=== PATIENT | male | born 1945 | race Caucasian/White ===

== ENCOUNTER 2016-08-12 12:02 | Day surgery (SDC) | payer MEDICARE ==
[2016-08-08 09:31] VITALS: BMI 30.2
[~2016-08-12 12:02] MED LIST: HEPARIN SODIUM,PORCINE 5,000 UNIT/ML 1 ML VIAL SQ ONE; HYDROmorphone 1 MG/ML 1 ML SYRINGE IVP PRN; LACTATED RINGERS 1,000 ML IV SCH; MIDAZOLAM 2 MG/2 ML VIAL IV PRN; ONDANSETRON 4 MG/2 ML VIAL IVP ONE; ceFAZolin 2 GM in SODIUM CHLORIDE 0.9% 100 ML IVPB ONE
--- NOTE | 2016-08-12 12:36 | P.GSHP ---
History of Present Illness H&P Date: 08/12/16 Chief Complaint: Bilateral inguinal hernia Patient here today for repair of bilateral inguinal hernia. He has had complaints particularly on the right side. He feels nauseous at times when he feels that the hernia is not reduced. No change in bowel habits. No nausea or vomiting. No prior repair. He did have operative repair of a hydrocele in the past. He states this was through the scrotum. - Review of Systems Comment: The patient denies any acute changes in his vision or hearing, no dysphagia or odynophagia, no chest pain or shortness of breath, no dysuria or hematuria, no headache, no runny nose, no rectal bleeding or melena, no unexplained weight loss Past Medical History Past Medical History: Hyperlipidemia, Hypertension, Osteoarthritis (OA), Prostate Disorder History of Any Multi-Drug Resistant Organisms: None Reported Additional Past Surgical History / Comment(s): PAROTID GLAND,COLONOSCOPY, HYDROCELE,RIGHT ARM , RIGHT SHOULDER Past Anesthesia/Blood Transfusion Reactions: Motion Sickness Past Psychological History: PTSD Smoking Status: Never smoker Past Alcohol Use History: Rare Past Drug Use History: None Reported - Past Family History Mother Family Medical History: No Reported History Medications and Allergies Home Medications Medication Instructions Recorded Confirmed Type Aspirin 325 mg PO DAILY 08/08/16 08/08/16 History Potassium 99 mg PO DAILY 08/08/16 08/08/16 History Simvastatin [Zocor] 20 mg PO DAILY 08/08/16 08/08/16 History Tamsulosin HCl [Flomax] 0.4 mg PO DAILY 08/08/16 08/08/16 History Valsartan/Hydrochlorothiazide 1 tab PO DAILY 08/08/16 08/08/16 History [Diovan Hct 320-12.5 mg Tab] amLODIPine [Norvasc] 5 mg PO DAILY 08/08/16 08/08/16 History Allergies Allergy/AdvReac Type Severity Reaction Status Date / Time No Known Allergies Allergy Verified 08/12/16 12:32 Surgical - Exam Physical exam: General: Well-developed, well-nourished HEENT: Normocephalic, sclerae nonicteric Abdomen: Nontender, nondistended, bilateral inguinal hernia right greater than left Extremities: No edema Neuro: Alert and oriented Assessment and Plan (1) Bilateral inguinal hernia Narrative/Plan: Will proceed with da Jose F assisted laparoscopic repair. Potential conversion to open was discussed. Additional risks of bleeding, infection, bladder or bowel injury, chronic pain, recurrence, and anesthesia-related, locations were reviewed. He understands and wishes to proceed. Status: Acute
[2016-08-12] MEDS ORDERED: ePHEDrine 50 MG/ML 1 ML AMP ONE (13:09)
[2016-08-12] MEDS ORDERED: DEXAMETHASONE SOD PHOS (MDV) 100 MG/10 ML VIAL ONE (13:09)
[2016-08-12] MEDS ORDERED: SUCCINYLCHOLINE CHLORIDE VIAL 200 MG/10 ML VIAL IV ONE (13:09)
[2016-08-12] MEDS ORDERED: NEOSTIGMINE 1 MG/ML 10 ML VIAL ONE (13:09)
[2016-08-12] MEDS ORDERED: fentaNYL (PF) 50 MCG/ML 2 ML AMP ONE (13:09)
[2016-08-12] MEDS ORDERED: LIDOCAINE 1% INJ 10MG/ML (20 ML MDV) ONE (13:09)
[2016-08-12] MEDS ORDERED: ROCURONIUM BROMIDE 10 MG/ML 10 ML VIAL IV ONE (13:09)
[2016-08-12] MEDS ORDERED: PROPOFOL 10 MG/ML 20 ML VIAL IV ONE (13:09)
[2016-08-12] MEDS ORDERED: GLYCOPYRROLATE 0.2 MG/ML 2 ML VIAL ONE (13:09)
[2016-08-12] MEDS ORDERED: MIDAZOLAM 2 MG/2 ML VIAL ONE (13:09)
[2016-08-12] MEDS ORDERED: BUPIVACAIN-EPI 0.25%-1:200,000 30 ML VIAL SQ ONE (14:02)
[2016-08-12] MEDS ORDERED: LACTATED RINGERS 1,000 ML IV ONE ×2 (16:13)
[2016-08-12] MEDS ORDERED: ONDANSETRON 4 MG/2 ML VIAL IVP PRN (17:00)
[2016-08-12] MEDS ORDERED: HYDROmorphone 1 MG/ML 1 ML SYRINGE IVP PRN (17:00)
[2016-08-12] MEDS ORDERED: traMADol 50 MG TAB PO PRN (17:00)
[2016-08-12] MEDS ORDERED: HYDROcodone/APAP 5-325MG 1 EACH TAB PO PRN (17:00)
[2016-08-12] MEDS ORDERED: NALOXONE 0.4 MG/ML 1 ML VIAL IV PRN (17:00)
--- NOTE | 2016-08-12 17:07 | P.OP ---
Date of Procedure: 08/12/16 Procedure(s) Performed: PREOPERATIVE DIAGNOSIS: Bilateral inguinal hernia POSTOPERATIVE DIAGNOSIS: Same PROCEDURE: Laparoscopic repair bilateral inguinal hernia with the da Jose F robot assistance SURGEON: Vida EBL: Minimal ANESTHESIA: General COMPLICATIONS: None OPERATIVE PROCEDURE: Patient was placed in the operating table in the supine position. A Knight catheter was placed. He was then placed in lithotomy. The abdomen was prepped and draped in usual sterile fashion. A small curvilinear supraumbilical incision was made. The fascia was retracted anteriorly with Demetris forceps. The Veress needle was inserted. The saline drop test was normal. Insufflation took place to 15 mmHg. A 5 mm trocar was then inserted. 2 additional 8 mm trochars were placed in the right upper quadrant and left upper quadrant under visualization. The initial 5 was switched to a 12 mm trocar at that time under direct visualization. The robotic arms were then brought in and docked into place. The fenestrated bipolar was used in the left arm and the laparoscopic hiram was utilized in the right arm. A 30 12 mm scope was used in the up position. The peritoneal cavity was inspected. A sizable right inguinal hernia was seen. A subtle defect in the left inguinal region was also appreciated. A incision was then made on the right groin first cephalad to the hernia defect by several centimeters. Following that careful dissection of the preperitoneal space took place. This took place using both electrocautery and sharp dissection and primarily blunt dissection. The patient 's hernia was an indirect hernia. Hernia sac was carefully dissected away from the spermatic cord structures. This was followed along the distal aspect of the iliac vessels as well mobilizing the sac fully. There was no visible direct hernia. Medially we were dissected to the pubic symphysis. Next the dissection took place on the left side. No visible hernia was identified in the direct space. I suspected a small indirect hernia here. This was dissected in a similar fashion from the pubic symphysis to the lateral pelvis. We had adequate visualization to place our 15 x 10 mesh. This was first placed in the right groin. This was unfolded from posterior to anterior. I did trim it the lateral aspect the mesh slightly on the right side. This covered all spaces quite nicely. The mesh was then placed in the left inguinal region in a similar fashion. This dissection did not require any additional trimming of the mesh. This was unfolded nicely as well. Once the mesh was in place the peritoneal defect was then closed using a locking 2-0 Vicryl stranstrattafix suture bilaterally. The pneumoperitoneum was then evacuated. The fascia at the 12 mm site was closed using a [id number] 0 Vicryl stitch. The skin of all 3 sites was closed using a 4-0 Monocryl stitch. Steri-Strips and sterile dressings were applied. DISPOSITION: Stable to recovery room
[2016-08-12 17:09] VITALS: TEMP 97.5
[2016-08-12 17:32] VITALS: RESP 16
[2016-08-12] MEDS ORDERED: TAMSULOSIN 0.4 MG CAP.ER.24H PO STA (17:51)
[2016-08-12] MEDS ORDERED: HYDROcodone/APAP 5-325MG 1 EACH TAB PO ONE (18:47)
[2016-08-12 19:05] VITALS: BP 127/73; PULSE 80
== END 2016-08-12 19:28 | disposition home or self-care (01) ==
LOC: OR 12:02
PROVIDERS: ATTEND Surgery
DX: K40.20 Bilateral inguinal hernia, without obstruction or gangrene, not specified as recurrent (principal); I10 Essential (primary) hypertension; E78.5 Hyperlipidemia, unspecified; M19.90 Unspecified osteoarthritis, unspecified site; Z79.82 Long term (current) use of aspirin; Z79.899 Other long term (current) drug therapy
CPT/HCPCS: 49650; C1781; J2250; J0330; J1644; J2710; J0690; J2405; J2001; J3010; J1100; J2704

== ENCOUNTER → 2020-05-05 | Day surgery (SDC) | payer MEDICARE ==
[2020-05-02 16:39] VITALS: BMI 27.4
--- NOTE | 2020-05-04 16:54 | P.GSHP ---
History of Present Illness H&P Date: 05/04/20 Chief Complaint: right recurrent inguinal hernia 74-year-old male known to our service. He underwent repair bilateral inguinal hernia laparoscopically 2016. Recently has had a bulge present in the right groin. Increasing in size. Mild discomfort at times. No symptoms on the left hand side. Previous repair on the right was a large indirect hernia. Patient has difficulties with urination postoperatively. Past Medical History Past Medical History: Cancer, GERD/Reflux, Hyperlipidemia, Hypertension, Myocardial Infarction ([place]), Osteoarthritis (OA), Prostate Disorder, Thyroid Disorder Additional Past Medical History / Comment(s): thyroid cancer 2018-had surgery, BPH, back pain Last Myocardial Infarction Date:: 2016 History of Any Multi-Drug Resistant Organisms: None Reported Past Surgical History: Heart Catheterization With Stent, Hernia Repair Additional Past Surgical History / Comment(s): L PAROTID GLAND, COLONOSCOPY, R HYDROCELE, RIGHT LOWER ARM SURGERY D/T INJURY WHILE IN THE SERVICE, RIGHT SHOULDER ROTATOR CUFF REPAIR, BILATERAL INGUINAL HERNIA REPAIRS, total thyroidectomy, cataracts removed Past Anesthesia/Blood Transfusion Reactions: Previous Problems w/ Anesthesia, Motion Sickness Additional Past Anesthesia/Blood Transfusion Reaction / Comment(s): unable to urinate after surgery-has happened twice, spouse very concerned about it Date of Last Stent Placement:: 2016 Smoking Status: Never smoker - Past Family History Mother Family Medical History: Diabetes Mellitus Father Family Medical History: Myocardial Infarction ([place]) Additional Family Medical History / Comment(s): FATHER OF A [place] AT THE AGE OF 56YRS. Medications and Allergies Home Medications Medication Instructions Recorded Confirmed Type Omeprazole 20 mg PO AC-BRKFST 03/13/17 05/02/20 History Aspirin 81 mg PO DAILY chew 03/15/17 05/02/20 Rx Metoprolol Succinate (ER) [Toprol 25 mg PO DAILY tab.er.24h 03/15/17 05/02/20 Rx XL] Nitroglycerin Sl Tabs [Nitrostat] 0.4 mg SUBLINGUAL Q5M PRN #25 tab 03/15/17 05/02/20 Rx Cyanocobalamin (Vitamin B-12) 5,000 mcg PO DAILY 05/02/20 05/02/20 History [Vitamin B-12] Levothyroxine Sodium [Synthroid] 150 mcg PO DAILY 05/02/20 05/02/20 History Multivitamins, Thera [Multivitamin 1 tab PO DAILY 05/02/20 05/02/20 History (formulary)] Rosuvastatin [Crestor] 40 mg PO W/SUPPER 05/02/20 05/02/20 History Spironolactone [Aldactone] 12.5 mg PO DAILY 05/02/20 05/02/20 History Valsartan/Hydrochlorothiazide 1 tab PO DAILY 05/02/20 05/02/20 History [Diovan Hct 320-12.5 mg Tab] Allergies Allergy/AdvReac Type Severity Reaction Status Date / Time No Known Allergies Allergy Verified 05/02/20 16:32 Surgical - Exam Physical exam: General: Well-developed, well-nourished HEENT: Normocephalic, sclerae nonicteric Abdomen: Nontender, nondistended, reducible moderate-sized right inguinal hernia, no palpable hernia on the left Extremities: No edema Neuro: Alert and oriented Assessment and Plan (1) Recurrent right inguinal hernia Narrative/Plan: 74-year-old male with recurrent hernia right hand side. We'll proceed with open repair with mesh tomorrow. Risks of bleeding, infection, recurrence, bladder and bowel injury, numbness, nerve injury, urinary retention were discussed with the patient. The patient understands and wishes to proceed. We'll consider ei ther Knight catheter or observation overnight postoperatively if any difficulties voiding. Status: Acute Code(s): K40.91 - UNILATERAL INGUINAL HERNIA, W/O OBST OR GANGRENE, RECURRENT SNOMED Code(s): 573613311
[~2020-05-05] MED LIST changes: +ACETAMINOPHEN TAB 325 MG TAB PO SCH; +ACETAMINOPHEN TAB 500 MG TAB PO PRN; +BUPIVACAINE (PF) 0.25% 30 ML VIAL SQ ONE; +DEXAMETHASONE SOD PHOSPHATE 4 MG/ML 1 ML VIAL IV ONE; +GLYCOPYRROLATE 0.2 MG/ML 2 ML VIAL ONE; -HEPARIN SODIUM,PORCINE 5,000 UNIT/ML 1 ML VIAL SQ ONE; +HEPARIN SODIUM,PORCINE 5,000 UNIT/ML 1 ML VIAL SQ PRN; +HYDROmorphone 0.5 MG/0.5 ML SYRINGE IVP PRN; -HYDROmorphone 1 MG/ML 1 ML SYRINGE IVP PRN; +IBUPROFEN 600 MG TAB PO SCH; +LACTATED RINGERS 1,000 ML IV ONE; +LIDOCAINE 1% INJ 10MG/ML (20 ML MDV) ONE; +MIDAZOLAM 2 MG/2 ML VIAL ONE; +NEOSTIGMINE 1 MG/ML 10 ML VIAL ONE; +PROPOFOL 10 MG/ML 20 ML VIAL IV ONE; +ROCURONIUM 10 MG/ML (10 ML VIAL) IV ONE; +SUCCINYLCHOLINE CHLORIDE 100 MG/5 ML SYR IV ONE; +TAMSULOSIN 0.4 MG CAP.ER.24H PO ONE; -ceFAZolin 2 GM in SODIUM CHLORIDE 0.9% 100 ML IVPB ONE; +fentaNYL (PF) 50 MCG/ML 2 ML AMP ONE; +traMADol 50 MG TAB ONE; +traMADol 50 MG TAB PO ONE
[2020-05-05 11:45] VITALS: TEMP 98.3
--- NOTE | 2020-05-05 11:51 | P.OP ---
Date of Procedure: 05/05/20 Procedure(s) Performed: PREOPERATIVE DIAGNOSIS: Recurrent right inguinal hernia POSTOPERATIVE DIAGNOSIS: Same PROCEDURE: Current right inguinal hernia repair with mesh SURGEON: Vida EBL: Minimal ANESTHESIA: General COMPLICATIONS: None OPERATIVE PROCEDURE: Patient was placed in the operating table in the supine position and placed under general anesthesia. An oblique incision was made in the [] groin. Dissection down through the subcutaneous tissues took place using electrocautery. The external oblique fascia was incised using a scalpel. This opening was lengthened using the Metzenbaum scissors. The spermatic cord was encircled with a [place] drain. The structures were identified and preserved. Careful dissection revealed no evidence of a hernia sac per se. A large lipoma cord was encountered and ligated at the internal inguinal ring using an 0 silk stick tie suture. The patient had a very wide internal inguinal ring. The hernia was acting like a direct hernia through the internal inguinal ring. I could not feel the mesh that was previously placed laparoscopically. The contents were reduced. A large Prolene hernia system was utilized with the circular portion placed in the preperitoneal space through the large internal inguinal ring. After this was flattened out appropriately the internal inguinal ring itself was tightened using a short running 0 silk suture. The outer oval piece of mesh was then slit and wrapped around the spermatic cord and sutured back to itself. The mesh was sewn to the folding edge of the inguinal ligament, the pubic tubercle, the conjoined tendon using interrupted 2-0 Nurolon sutures. This appeared to create a nice closure. The external oblique was then reapproximated using a running 2-0 Vicryl suture. The subcutaneous tissues were reapproximated using a 3-0 Vicryl sutures. The skin was closed using 4-0 Monocryl sutures. Skin glue and sterile dressings were then applied. DISPOSITION: Stable to recovery room
[2020-05-05 13:36] VITALS: RESP 16
[2020-05-05 14:03] VITALS: BP 120/70; PULSE 59
== END ==
LOC: OR 08:37
PROVIDERS: ATTEND Surgery
DX: K40.91 Unilateral inguinal hernia, without obstruction or gangrene, recurrent (principal); I25.10 Atherosclerotic heart disease of native coronary artery without angina pectoris; I10 Essential (primary) hypertension; E78.5 Hyperlipidemia, unspecified; I25.2 Old myocardial infarction; E89.0 Postprocedural hypothyroidism; M19.90 Unspecified osteoarthritis, unspecified site; F43.10 Post-traumatic stress disorder, unspecified; N42.9 Disorder of prostate, unspecified; K21.9 Gastro-esophageal reflux disease without esophagitis; N40.0 Benign prostatic hyperplasia without lower urinary tract symptoms; M54.9 Dorsalgia, unspecified; Z85.850 Personal history of malignant neoplasm of thyroid; Z95.5 Presence of coronary angioplasty implant and graft; Z79.899 Other long term (current) drug therapy; Z79.82 Long term (current) use of aspirin; Z79.890 Hormone replacement therapy; Z98.890 Other specified postprocedural states; Z98.49 Cataract extraction status, unspecified eye; Z83.3 Family history of diabetes mellitus; Z82.49 Family history of ischemic heart disease and other diseases of the circulatory system
CPT/HCPCS: 88304; 49520; C1781; J2250; J1644; J1100; J2710; J0690; J2405; J2001; J3010; J0330; J2704; J1170